=== PATIENT | male | born 1990 | race Two or more races ===

== ENCOUNTER 2019-01-14 12:39 | Outpatient (CLI) | payer OTHER | END 2019-01-14 12:42 | disposition home or self-care (01) | LOC: LAB 12:39 | DX: B34.8 Other viral infections of unspecified site (principal); Z11.4 Encounter for screening for human immunodeficiency virus [HIV] ==

== ENCOUNTER → 2020-11-06 10:05 | Outpatient (CLI) | payer OTHER | END | disposition home or self-care (01) | LOC: LAB 10:05 | DX: N39.0 Urinary tract infection, site not specified (principal); D64.89 Other specified anemias; Z11.4 Encounter for screening for human immunodeficiency virus [HIV] ==